=== PATIENT | female | born 1990 | race Caucasian/White ===

== ENCOUNTER 2019-05-03 08:29 | Outpatient (CLI) | payer BC ==
[~2019-05-03] VITALS: Ht 165.1 cm; Wt 57.7 kg
[~2019-05-03 08:29] MED LIST: IBU600 MG PO; PERCOCET 325 MG1 TA2 PO; PRENATAL1 TA7 PO
[2019-05-03] MEDS ORDERED: CALCIUM CARBON650 M2 (08:42)
[2019-05-03 09:00] VITALS: BP 126/80; PULSE 93; TEMP 97.9
[2019-05-03 09:46] VITALS: BP 104/71; PULSE 83
== END 2019-05-03 09:55 | disposition home or self-care (01) ==
LOC: LDRO 08:29
DX: Z34.93 Encounter for supervision of normal pregnancy, unspecified, third trimester (principal); Z3A.36 36 weeks gestation of pregnancy

== ENCOUNTER 2019-06-26 07:42 | Inpatient (IN) | payer BC ==
[2019-06-26] VITALS (27 sets, daily range): BP systolic 85–129; BP diastolic 51–81; PULSE 64–112; TEMP 98.2–98.8
[~2019-06-26] VITALS: Ht 165.1 cm; Wt 58.2 kg
[~2019-06-26 07:42] MED LIST changes: +CALCIUM CARBON650 M2
--- NOTE | 2019-06-26 07:50 | NUR ---
Patient ambulatory to LR2, changed into gown, FHR/TOCO monitors placed. Patient states that she had an appt yesterday and was dilated to a [address] Sofia stripped her membranes. "I have been having alot of bloody discharge since, and started sho at about 0500 this morning" Plan of care discussed. 0800: SVE-5-6/100/0 and bloody show noted with bag intact and felt. Assessment completed Patient requesting epidural due to going to fast last time and could not get one, Dr. Sofia notified and admission/epidural orders received. IV started per Sincere KHAN, blood obtained and to lab, LR infusing. Consents gone over and discussed.
[2019-06-26 08:21] LABS: BASO # 0.1 (0.0-0.2); BASO % 0.3 % (0.0-2.0); EOS # 0.1 (0.0-0.7); EOS % 0.5 % (0-4.0); GRAN # 12.3 (1.4-6.5); GRAN % 83.7 % (42.2-75.2); HEMATOCRIT 38.8 % (37.0-47.0); HEMOGLOBIN 13.4 g/dl (12.5-16.0); LYMPH # 1.5 (1.2-3.4); LYMPH % 9.9 % (20.0-51.0); MEAN CELL VOLUME 92 fl (80.0-100.0); MEAN CORPUSCULAR HEMOGLOBIN 32 pg (27.0-31.0); MEAN CORPUSCULAR HGB CONC 35 g/dl (33.0-37.0); MEAN PLATELET VOLUME 9.6 fl (7.4-10.4); MONO # 0.7 (0.1-0.6); MONO % 4.6 % (1.7-9.3); PLATELET COUNT 198 K/mm3 (130-400); RED BLOOD COUNT 4.22 M/mm3 (4.10-5.30); REDCELL DISTRIBUTION WIDTH-CV 12.9 % (11.5-14.5)
--- NOTE | 2019-06-26 09:33 | NUR ---
0830 PATIENT SITTING UP IN BED FOR EPIDURAL PLACEMENT. Emily SUTTON CRNA AT BEDSIDE. TOLERATES WELL. SEE Emily SUTTON CRNA NOTES FOR QUESTIONS. 0835 SINGLE DOSE GIVEN. 0838 TEST DOSE GIVEN. PATIENT TOLERATES WELL
--- NOTE | 2019-06-26 10:12 | NUR ---
1000 DR DOUGLAS CALLED AND UPDATED OF SVE . NO NEW ORDERS.
--- NOTE | 2019-06-26 12:47 | NUR ---
1213 SVE COMPLETE, DR DOUGLAS CALLED TO [facility] FOR DELIVERY NOW. 1218 DR DOUGLAS HERE. PATIENT WILL PUSH WITH CONTRACTION. 1219 BABY GIRL BORN VIA . CORD CLAMPED AND CUT BY AND . STRONG CRY NOTED. 1224 PLACENTA DELIVERED, PITOCIN STARTED AT 333/HR FUNDUS FIRM. SMALL REPAIR DONE, PATIENT TOLERATE WELL.
[2019-06-27 01:00] VITALS: BP 107/71; PULSE 81; TEMP 97.9
[2019-06-27 09:01] VITALS: BP 110/74; PULSE 76; TEMP 98.1
[2019-06-27] MEDS ORDERED: IBU800 M1 PO (13:19)
== END 2019-06-27 14:00 | disposition home or self-care (01) | DRG 807 ==
LOC: COL.LAB 07:42 → LDRO 07:42 → LDR 08:05 → OB 15:30
PROVIDERS: ADMIT Student in an Organized Health Care Education/Training Program
PROC: 10E0XZZ Delivery of Products of Conception, External Approach (ICD-10-PCS; principal; 2019-06-26)
PROC: 10907ZC Drainage of Amniotic Fluid, Therapeutic from Products of Conception, Via Natural or Artificial Opening (ICD-10-PCS; 2019-06-26)
PROC: 0HQ9XZZ Repair Perineum Skin, External Approach (ICD-10-PCS; 2019-06-26)
DX: O99.344 Other mental disorders complicating childbirth (principal); Z37.0 Single live birth; F41.9 Anxiety disorder, unspecified; O70.0 First degree perineal laceration during delivery; Z3A.38 38 weeks gestation of pregnancy
CPT/HCPCS: J2590; J2795; J7120

== ENCOUNTER 2019-09-05 13:03 | Day surgery (SDC) | payer BC ==
[~2019-09-05] VITALS: Ht 165.1 cm; Wt 50.7 kg
[~2019-09-05 13:03] MED LIST changes: +IBU800 M1 PO
[2019-09-05 13:46] VITALS: BP 107/84; PULSE 78; TEMP 98.7
[2019-09-05 14:40] VITALS: BP 104/76; PULSE 83; TEMP 97.7
[2019-09-05 14:55] VITALS: BP 101/72; PULSE 65
[2019-09-05 15:10] VITALS: BP 111/75; PULSE 68
--- NOTE | 2019-09-05 15:27 | NUR ---
1440 ARRIVES TO [facility] [place] [facility] VIA CART. AMBULATED TO CHAIR WITH SBA . WARM BLANKET GIVEN. VSS. REQUESTED WATER TO DRINK. 1455 TOLERATING PO. DENIES COMPLAINT. PATIENT A&O X 4. WRITTEN AND VERBAL DISCHARGE INSTRUCTIONS GIVEN TO PATIENT. PATIENT VERBALIZED UNDERSTANDING. 1510 IV DISCONTINUED. CATHETER TIP INTACT. WASTED [address] LOONEY IN SPEAKING WITH PATIENT. 1515 PATIENT DISCHARGED TO POV VIS W/C WITH . PERSONAL BELONGINGS AND D/C INFORMATION SENT WITH PATIENT.
== END 2019-09-05 15:15 | disposition home or self-care (01) ==
LOC: SDCO 13:03
DX: R13.10 Dysphagia, unspecified (principal); F41.9 Anxiety disorder, unspecified; R19.7 Diarrhea, unspecified; K59.09 Other constipation; K59.00 Constipation, unspecified; R11.0 Nausea; Z88.0 Allergy status to penicillin; Z88.1 Allergy status to other antibiotic agents; Z79.899 Other long term (current) drug therapy; Z87.891 Personal history of nicotine dependence; K31.9 Disease of stomach and duodenum, unspecified
CPT/HCPCS: J2704; J7030

== ENCOUNTER 2020-09-25 16:29 | Emergency (ER) | payer BC ==
[~2020-09-25] VITALS: Ht 165.1 cm; Wt 48.2 kg
[2020-09-25 16:44] VITALS: BP 116/77; TEMP 98.6
[2020-09-25 17:40] VITALS: PULSE 83
== END 2020-09-25 17:40 | disposition home or self-care (01) ==
LOC: COL.ER 16:29
DX: S61.012A Laceration without foreign body of left thumb without damage to nail, initial encounter (principal); W26.8XXA Contact with other sharp object(s), not elsewhere classified, initial encounter

== ENCOUNTER 2021-12-23 15:33 | Emergency (ER) | payer BC ==
[~2021-12-23] VITALS: Ht 165.1 cm; Wt 59.5 kg
[2021-12-23 16:01] VITALS: TEMP 98.1
[2021-12-23 17:50] LABS: BASO # 0.1 K/mm3 (0.0-0.2); BASO % 0.6 % (0.0-2.0); EOS # 0.1 K/mm3 (0.0-0.7); EOS % 1.5 % (0.0-4.0); GRAN # 5.8 K/mm3 (1.4-6.5); GRAN % 66.6 % (42.2-75.2); HEMOGLOBIN 12.9 g/dl (12.5-16.0); LYMPH # 1.8 K/mm3 (1.2-3.4); LYMPH % 20.9 % (20.0-51.0); MEAN CELL VOLUME 91 fl (80.0-100.0); MEAN CORPUSCULAR HEMOGLOBIN 32 pg (27-31); MEAN CORPUSCULAR HGB CONC 35 g/dl (33.0-37.0); MEAN PLATELET VOLUME 9.8 fl (7.4-10.4); MONO # 0.8 K/mm3 (0.1-0.6); MONO % 9.3 % (1.7-9.3); PLATELET COUNT 213 K/mm3 (130-400); RED BLOOD COUNT 4.05 M/mm3 (4.10-5.30); REDCELL DISTRIBUTION WIDTH-CV 12.4 % (11.5-14.5)
[2021-12-23 17:51] LABS: HEMATOCRIT 36.8 % (37.0-47.0)
[2021-12-23 18:03] LABS: PROTHROMBIN TIME 10.9 SECONDS (9.7-12.8)
[2021-12-23 18:06] LABS: ALBUMIN 3.4 gm/dL (3.5-5.0); BILIRUBIN,TOTAL 0.4 mg/dL (0.2-1.2); CREATININE, serum 0.72 mg/dL (0.57-1.11); POTASSIUM 3.7 mmol/L (3.5-4.5); TOTAL PROTEIN 7.1 gm/dL (6.2-8.1)
--- NOTE | 2021-12-23 18:20 | NUR ---
1755- PT FOUND IN ER ROOM 12 RESTING ON THE STRETCHER. PT DENIES DECREASED FM, VAGINAL BLEEDING, LEAKING OF FLUID, AND CONTRACTIONS. MONITORS PLACED ON ABDOMEN. FHR IN THE 120S WITH MODERATE VARIABLILTY. PT ABDOMEN PALPATES SOFT. 1820-NST COMPLETED. CATEGORY 1 STRIP. FHR IN THE 110S WITH MODERATE VARIABILITY, ACCELERATIONS, AND NO DECELERATIONS. LABOR PRECAUTIONS GIVEN TO PT. PA NOTIFIED IN ER. CARE TO CONTINUE.
[2021-12-23 18:45] VITALS: BP 118/73; PULSE 65
== END 2021-12-24 00:32 | disposition home or self-care (01) ==
LOC: COL.ER 15:33
PROVIDERS: Physician Assistant
DX: O26.893 Other specified pregnancy related conditions, third trimester (principal); M79.662 Pain in left lower leg; Z28.311 Partially vaccinated for COVID-19; Z3A.32 32 weeks gestation of pregnancy

== ENCOUNTER → 2021-12-24 | Outpatient (CLI) | payer BC | LOC: COL.VAS 06:37 | DX: M79.605 Pain in left leg (principal) ==